=== PATIENT | female | born 1950 | race American Indian/Alaskan Native ===

== ENCOUNTER 2019-12-08 12:00 | Outpatient (CLI) | payer MEDICARE ==
--- NOTE | 2019-12-10 12:03 | XRay Report ---
RIGHT HAND 3 VIEW(S) INDICATION / CLINICAL INFORMATION: THUMB PAIN/ BONE PAIN/ DECREASED ROM COMPARISON: None available. FINDINGS: BONES / JOINT(S): No acute fracture or subluxation. 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 SOFT TISSUES: No significant abnormality. ADDITIONAL FINDINGS: None. Signer Name: Payam Rowley MD Signed: 12/10/2019 11:59 AM Workstation Name: [id number]
== END 2019-12-08 12:01 | disposition home or self-care (01) ==
LOC: SPVIMAG 12:00
PROVIDERS: ATTEND Internal Medicine Hematology & Oncology
DX: M18.9 Osteoarthritis of first carpometacarpal joint, unspecified (principal); M25.741 Osteophyte, right hand; C50.411 Malignant neoplasm of upper-outer quadrant of right female breast; F10.10 Alcohol abuse, uncomplicated

== ENCOUNTER 2021-07-31 12:19 | Outpatient (CLI) | payer MEDICARE ==
--- NOTE | 2021-07-31 15:44 | Mammography Report ---
DEXA BONE DENSITY SCAN INDICATION / CLINICAL INFORMATION: M85.89. 71 years Female COMPARISON: None available. LUMBAR SPINE, L1-L4: - Bone mineral density (BMD) = 1.133 g/cm2. - T-score = 0.8 - Change (%) since most recent prior (if available): None available. LEFT HIP, NECK : - Bone mineral density (BMD) = 0.833 g/cm2. - T-score = -0.1 - Change (%) since most recent prior (if available): None available. IMPRESSION: 1. WHO Classification: Normal bone density. Fracture Risk: Not Increased. 2. 10-Year Fracture Risk (FRAX) = Major Osteoporotic Not reported.% / Hip: Not reported.% FRAX generally not reported for patients with normal or osteoporotic BMD, in yqy-[id number]-[id number] miguel ents younger than age 50, or in patients undergoing pharmacotherapy BMD Reporting Guidelines (ISCD, 2015) BMD Reporting in Postmenopausal Women and in Men Age 50 and Older - T-scores are preferred. - The WHO densitometric classification is applicable. BMD Reporting in Females Prior to Menopause and in Males Younger Than Age 50 - Z-scores, not T-scores, are preferred. This is particularly important in children. - A Z-score of -2.0 or lower is defined as below the expected range for age, and a Z-score above -2.0 is within the expected range for age. - Osteoporosis cannot be diagnosed in men under age 50 on the basis of BMD alone. - The WHO diagnostic criteria may be applied to women in the menopausal transition. http://www.iscd.org/official-positions/9364-hnke-yovmgvwl-positions-adult/ Signer Name: Jarod Martin MD Signed: 07/31/2021 3:40 PM Workstation Name: [id number]
== END 2021-07-31 12:20 | disposition home or self-care (01) ==
LOC: MAMMO 12:19
PROVIDERS: ATTEND Internal Medicine Hematology & Oncology
DX: M85.89 Other specified disorders of bone density and structure, multiple sites (principal)
CPT/HCPCS: 77080